=== PATIENT | male | born 1970 ===

== ENCOUNTER 2024-06-14 11:10 | Inpatient (IN) | payer BC ==
--- OUTSIDE RECORDS SUMMARY | 2024-06-14 17:00 | XMS REPORT | Continuity of Care Document ---
Author Name Unknown Address [address] [facility] [address] [id number] [facility] [address] [facility] [address] [place] [address] Care Team Providers Care Visiting Nurse Name Role Phone UNKNOWN, REFFERING Primary Care Physician EMILY Payton M.D., Cliff DIAZ Attending Cl inician Unavailable EMILY MERA M.D., Cliff DIAZ Admitting Cl inician Unavailable Immunizations Ordered Immunization Name Filled Immunization Name Date Status Comments Source Pfizer COVID-19 Vaccine Pfizer COVID-19 Vaccine 2021-01-15 00:00:00 Completed Pfizer COVID-19 Vaccine Pfizer COVID-19 Vaccine 2020-12-25 00:00:00 Completed Encounters Start Date/Time End Date/Time Encounter Type Admission Type [facility]ending [facility] Care Department Encounter ID Source 2021-01-15 00:00:00 2021-01-15 00:00:00 Outpatient [facility] [id number] [facility] 2020-12-25 00:00:00 2020-12-25 00:00:00 Outpatient [facility] [id number] [facility] 2017-03-31 06:56:00 2017-03-31 06:56:00 Outpatient EMILY BURGESS M.D. [facility] [id number] [facility] Notes Date/Time Note Provider Source 2017-05-23 21:55:55 [facility] enter Operative Report/Procedure PATIENT NAME: SADAF DOLL PHYSICIAN: Emily Mera MD Admitted: MR NUMBER: [id number] DISCHARGED: DATE OF PROCEDURE: 03/31/2017 PROCEDURE: Moderate conscious sedation, left subclavian angiography single lead ICD implanted device programming. DIAGNOSIS: Dilated cardiomyopathy with congestive heart failure. PROCEDURE IN DETAIL: After appropriate consent, the patient was taken to lab engineer, where she was draped in usual manner. The left upper chest was cleansed with local anesthetic, a total of 30 mL of lidocaine was given. Fluoroscopic evaluation was utilized throughout the procedure. Visipaque was administered to evaluate the takeoff of the surface of the subclavian vein and the vein was punctured under fluoroscopy. A guidewire was introduced. Then, with a 15 blade, a 2-inch incision was made across the chest and careful dissection with Metzenbaum to create a pocket, the generator was performed. The pocket was irrigated with antibiotic solution and a 7-[place] sheath was advanced over the guidewire. The guidewire and dilator were removed. The sheath was aspirated and flushed. An active fixation lead a [employer] model 7120Q/52 cm, serial number [id number] was placed on the RV apex. Active fixation was performed. Interrogation of the lead demonstrated an R-wave of 14.9 millivolts, impedance of 850 ohms and threshold 0.6 volts at 0.5 millisecond pulse with 10 volts, no diaphragmatic stimulation was noted. The lead was sutured with 0 silk within the pocket. Then, the pocket was irrigated with antibiotic solution again and the lead was connected to the device, which is [employer], model RT7979-58O, serial number was [id number], which was placed within the pocket after the lead was firmly connected to it and then the incision was closed with 2 layers of 2-0 Vicryl, layer of adrian as well as Dermabond. The patient tolerated the procedure well. No immediate complication. Estimated blood loss 2 mL. To recovery in stable condition. MD JOAN Romero/JOE TD: 03/31/2017 14:37 Electronically Authenticated by: Emily Mera MD On 04/27/2017 09:[address] [facility]
[2024-06-14 17:27] VITALS: BMI 34.2
[2024-06-14] MEDS ORDERED: ACETAMINOPHEN 500 MG TAB PO PRN (17:45)
[2024-06-14] MEDS ORDERED: OXYCODONE HCL 5 MG TAB PO PRN (17:54)
[2024-06-14] MEDS ORDERED: ENOXAPARIN 40 MG/0.4 ML SQ SCH (20:00)
[2024-06-14] MEDS: carvediloL 6.25 MG TAB PO SCH (20:13)
[2024-06-14] MEDS: GABAPENTIN 300 MG CAP PO SCH (20:13)
[2024-06-14] MEDS: HYDROCODONE/APAP 5/325 MG TAB PO PRN (20:13)
[2024-06-15 00:13] LABS: Specific Gravity 1.015 (1.005-1.030); Sqamous Epithelial None Seen /HPF (None Seen); Urine Bacteria None Seen /HPF (<20); Urine Bilirubin NEGATIVE (Negative); Urine Blood Negative (Negative); Urine Clarity Clear (Clear); Urine Color Light-Yellow (Yellow); Urine Culture Reflex Order NOT NEEDED; Urine Glucose NEGATIVE (Negative); Urine Ketones NEGATIVE (Negative); Urine Micro Reflex YN NO BILL MICROSCOPIC; Urine Nitrite NEGATIVE (Negative); Urine Protein NEGATIVE (Negative); Urine RBC <5 /HPF (None Seen); Urine Urobilinogen Normal (Normal); Urine WBC <5 /HPF (<5)
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
[2024-06-15 06:06] LABS: Absolute Basophils 0.1 K/uL (0-0.5); Absolute Eosinophils 0.5 K/uL (0-0.5); Absolute Lymphocytes (CBC) 2.2 K/uL (0.7-4.9); Absolute Monocytes 1.1 K/uL (0.1-1.3); Absolute Neutrophil 9.2 K/uL (1.8-8.0); Eosinophils % 3.8 % (0-4.4); Hematocrit 30.7 % (39.6-49.0); Lymphocytes % 16.8 % (15.3-44.8); MCH 33.3 pg (27.0-35.0); MCHC 32.5 g/dL (32.0-36.0); MCV 102.3 fL (80-100); Monocytes % 8.5 % (3.3-12.3); Neutrophils % 69.9 % (41.7-73.7); Nucleated Red Blood Cells % 0.2 % (0-0); Platelets 793 thou/uL (152-406); Red Cell Distribution Width 14.9 % (12.1-15.2)
[2024-06-15 06:37] LABS: Albumin 2.5 g/dL (3.4-5.0); Anion Gap 8.1 mEq/L (5.0-15.0); Magnesium 2.5 mg/dL (1.6-2.4); Potassium 4.1 mEq/L (3.5-5.1); Prealbumin 18.2 mg/dL (20-40)
[2024-06-15] MEDS: FUROSEMIDE 40 MG TABLET PO SCH (07:51)
[2024-06-15] MEDS: LIDOCAINE 4% PATCH TOP SCH (08:00)
[2024-06-15] MEDS: CELECOXIB 100 MG CAPSULE PO SCH (08:43)
[2024-06-15] MEDS: SACUBITRIL/VALSARTAN 24/26 MG TAB PO SCH (08:43)
[2024-06-15] MEDS: methocarbamoL 500 MG TAB PO PRN (12:14)
[2024-06-15] MEDS: RIVAROXABAN 20 MG TABLET PO SCH (17:20)
[2024-06-15] MEDS: ZOLPIDEM TARTRATE 10 MG TABLET PO SCH (22:02)
[2024-06-17 06:07] LABS: Absolute Eosinophils 0.7 K/uL (0-0.5); Absolute Lymphocytes (CBC) 1.6 K/uL (0.7-4.9); Absolute Monocytes 1.2 K/uL (0.1-1.3); Absolute Neutrophil 8.3 K/uL (1.8-8.0); Basophils % 0.3 % (0-1.3); Eosinophils % 5.6 % (0-4.4); Hematocrit 27.6 % (39.6-49.0); Hemoglobin 9.1 g/dL (13.6-17.9); Lymphocytes % 13.5 % (15.3-44.8); MCH 32.7 pg (27.0-35.0); MCHC 33.1 g/dL (32.0-36.0); MCV 98.9 fL (80-100); MPV 7.7 fL (7.6-11.3); Monocytes % 9.8 % (3.3-12.3); Neutrophils % 70.8 % (41.7-73.7); Nucleated Red Blood Cells % 0.2 % (0-0); Platelets 663 thou/uL (152-406); Red Cell Distribution Width 14.8 % (12.1-15.2)
[2024-06-17 06:24] LABS: Magnesium 2.2 mg/dL (1.6-2.4)
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
[2024-06-18] MEDS: LIDOCAINE 4% PATCH TOP SCH (07:29)
[2024-06-18] MEDS: FERROUS SULFATE 325 MG TAB PO SCH (10:00)
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
[2024-06-19] MEDS: DOCUSATE NA 100 MG CAP PO PRN (19:37)
[2024-06-20 05:50] LABS: Absolute Basophils 0.1 K/uL (0-0.5); Absolute Eosinophils 0.5 K/uL (0-0.5); Absolute Lymphocytes (CBC) 1.4 K/uL (0.7-4.9); Absolute Monocytes 1.2 K/uL (0.1-1.3); Absolute Neutrophil 6.6 K/uL (1.8-8.0); Basophils % 1.3 % (0-1.3); Eosinophils % 4.7 % (0-4.4); Hematocrit 26.3 % (39.6-49.0); Hemoglobin 8.8 g/dL (13.6-17.9); Lymphocytes % 14.1 % (15.3-44.8); MCHC 33.6 g/dL (32.0-36.0); MCV 98.2 fL (80-100); MPV 7.5 fL (7.6-11.3); Neutrophils % 67.9 % (41.7-73.7); Nucleated Red Blood Cells % 0.1 % (0-0); Platelets 575 thou/uL (152-406); RBC Red Blood Cell Count 2.68 M/uL (4.33-5.43)
[2024-06-20 06:04] LABS: Albumin 2.3 g/dL (3.4-5.0); Magnesium 2.2 mg/dL (1.6-2.4); Prealbumin 13.3 mg/dL (20-40)
[2024-06-20] MEDS: IBUPROFEN 600 MG TAB PO PRN (17:12)
[2024-06-20] MEDS ORDERED: IBUPROFEN 600 MG TAB PO SCH (20:00)
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
[2024-06-21] MEDS: FE SULF/FA/VIT B COMP & C TAB PO SCH (08:07)
--- NOTE | 2024-06-21 13:57 | P.RH.PN ---
Estimated Length of Stay: 14 Expected Discharge Date: 06/26/24 Discharge Disposition Plan: Home Family Support: Yes Skilled Nursing Goal: Mobility, Transfers, Self Care Vital Signs: Last Vital Signs Temp 97.7 F 06/21/24 07:15 Pulse 92 H 06/21/24 07:26 Resp 17 06/21/24 07:24 BP 137/66 06/21/24 07:26 Pulse Ox 97 06/21/24 07:24 Laboratory: Laboratory Last Values WBC 9.70 thou/uL (4.3-10.9) 06/20/24 05:07 RBC 2.68 M/uL (4.33-5.43) L 06/20/24 05:07 Hgb 8.8 g/dL (13.6-17.9) L 06/20/24 05:07 Hct 26.3 % (39.6-49.0) L 06/20/24 05:07 MCV 98.2 fL (80-100) 06/20/24 05:07 MCH 33.0 pg (27.0-35.0) 06/20/24 05:07 MCHC 33.6 g/dL (32.0-36.0) 06/20/24 05:07 RDW 15.0 % (12.1-15.2) 06/20/24 05:07 Plt Count 575 thou/uL (152-406) H 06/20/24 05:07 MPV 7.5 fL (7.6-11.3) L 06/20/24 05:07 Neutrophils % 67.9 % (41.7-73.7) 06/20/24 05:07 Lymphocytes % 14.1 % (15.3-44.8) L 06/20/24 05:07 Monocytes % 12.0 % (3.3-12.3) 06/20/24 05:07 Eosinophils % 4.7 % (0-4.4) H 06/20/24 05:07 Basophils % 1.3 % (0-1.3) 06/20/24 05:07 Absolute Neutrophils 6.6 K/uL (1.8-8.0) 06/20/24 05:07 Absolute Lymphocytes 1.4 K/uL (0.7-4.9) 06/20/24 05:07 Absolute Monocytes 1.2 K/uL (0.1-1.3) 06/20/24 05:07 Absolute Eosinophils 0.5 K/uL (0-0.5) 06/20/24 05:07 Absolute Basophils 0.1 K/uL (0-0.5) 06/20/24 05:07 Sodium 135 mEq/L (136-145) L 06/20/24 05:07 Potassium 4.0 mEq/L (3.5-5.1) 06/20/24 05:07 Chloride 103 mEq/L (98-107) 06/20/24 05:07 Carbon Dioxide 27 mEq/L (21-32) 06/20/24 05:07 Anion Gap 9.0 mEq/L (5.0-15.0) 06/20/24 05:07 BUN 9 mg/dL (7-18) 06/20/24 05:07 Creatinine 0.64 mg/dL (0.70-1.30) L 06/20/24 05:07 Est GFR (CKD-EPI) 111 ml/min (=/>90) 06/20/24 05:07 Glucose 104 mg/dL (74-106) 06/20/24 05:07 Calcium 8.5 mg/dL (8.5-10.1) 06/20/24 05:07 Magnesium 2.2 mg/dL (1.6-2.4) 06/20/24 05:07 Albumin 2.3 g/dL (3.4-5.0) L 06/20/24 05:07 Prealbumin 13.3 mg/dL (20-40) L 06/20/24 05:07 Urine Color Light-yellow (Yellow) 06/14/24 23:07 Urine Clarity Clear (Clear) 06/14/24 23:07 Urine pH 8.0 (5.0-7.0) H 06/14/24 23:07 Ur Specific [place] 1.015 (1.005-1.030) 06/14/24 23:07 Glucose (UA)(Auto) Negative (Negative) 06/14/24 23:07 Urine Ketones Negative (Negative) 06/14/24 23:07 Urine Blood Negative (Negative) 06/14/24 23:07 Urine Nitrite Negative (Negative) 06/14/24 23:07 Urine Bilirubin Negative (Negative) 06/14/24 23:07 Urine Urobilinogen Normal (Normal) 06/14/24 23:07 Ur Leukocyte Esterase Negative Dell/uL (Negative) 06/14/24 23:07 Urine RBC <5 /HPF (None Seen) 06/14/24 23:07 Urine WBC <5 /HPF (<5) 06/14/24 23:07 Ur Squamous Epith Cells None seen /HPF (None Seen) 06/14/24 23:07 Urine Bacteria None seen /HPF (<20) 06/14/24 23:07 Urine Culture Reflexed Not needed 06/14/24 23:07 Urine Total Protein Negative (Negative) 06/14/24 23:07 Weight: 225 lb Wound Present: Yes Closed Surgical Incision Present: Yes Negative Pressure Wound Therapy Present: No Physician Update: Labs reviewed and are stable. Met STG and 3/ LTG. Min assist transfers, in parallel bars. RW with left crutch 15', WC 375' independent. Met 4/ STG and no LTG. Keeping precautions. No evidence of depressing now. Swelling in both legs. Will do dopplers. Min assist upper body dressing, min assist foot wear. 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 Please see the Rehabilitation Signature page for all necessary signatures.
--- NOTE | 2024-06-21 15:42 | RAD REPORT ---
EXAMINATION: Ankle Left 2 View CLINICAL INDICATION: Male, 54 years old. pain,swelling COMPARISON: No prior exam. FINDINGS: No acute fracture. No malalignment/dislocation. No significant focal degenerative change. Other: Mild generalized soft tissue swelling. IMPRESSION: No acute osseous abnormality.
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
[2024-06-22 06:31] LABS: Uric Acid 4.3 mg/dL (3.5-7.2)
[2024-06-22] MEDS ORDERED: BISACODYL 10 MG RECTAL SUPP PR PRN (08:24)
[2024-06-22] MEDS: DOCUSATE NA/SENNA CONC 1 TAB PO SCH (08:28)
[2024-06-22] MEDS: POLYETHYL GLY 3350 17 GM/DOSE PO PRN (08:29)
[2024-06-23 05:15] LABS: Absolute Basophils 0.1 K/uL (0-0.5); Absolute Eosinophils 0.6 K/uL (0-0.5); Absolute Lymphocytes (CBC) 1.3 K/uL (0.7-4.9); Absolute Monocytes 0.8 K/uL (0.1-1.3); Absolute Neutrophil 5.6 K/uL (1.8-8.0); Basophils % 1.2 % (0-1.3); Eosinophils % 7.5 % (0-4.4); Hematocrit 27.9 % (39.6-49.0); Hemoglobin 9.1 g/dL (13.6-17.9); Lymphocytes % 15.4 % (15.3-44.8); MCH 31.6 pg (27.0-35.0); MCHC 32.7 g/dL (32.0-36.0); MCV 96.6 fL (80-100); MPV 7.7 fL (7.6-11.3); Monocytes % 9.3 % (3.3-12.3); Neutrophils % 66.6 % (41.7-73.7); Nucleated Red Blood Cells % 0.1 % (0-0); Platelets 536 thou/uL (152-406); RBC Red Blood Cell Count 2.89 M/uL (4.33-5.43); Red Cell Distribution Width 15.8 % (12.1-15.2)
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
[2024-06-25 05:34] LABS: Absolute Basophils 0.1 K/uL (0-0.5); Absolute Eosinophils 0.8 K/uL (0-0.5); Absolute Lymphocytes (CBC) 1.5 K/uL (0.7-4.9); Absolute Monocytes 0.6 K/uL (0.1-1.3); Absolute Neutrophil 4.5 K/uL (1.8-8.0); Basophils % 1.1 % (0-1.3); Eosinophils % 11.1 % (0-4.4); Hematocrit 26.9 % (39.6-49.0); Hemoglobin 9.1 g/dL (13.6-17.9); Lymphocytes % 19.5 % (15.3-44.8); MCH 31.9 pg (27.0-35.0); MCHC 33.8 g/dL (32.0-36.0); MCV 94.5 fL (80-100); MPV 7.4 fL (7.6-11.3); Monocytes % 8.2 % (3.3-12.3); Neutrophils % 60.1 % (41.7-73.7); Nucleated Red Blood Cells % 0.1 % (0-0); Platelets 460 thou/uL (152-406); RBC Red Blood Cell Count 2.85 M/uL (4.33-5.43); Red Cell Distribution Width 15.8 % (12.1-15.2)
[2024-06-25 05:50] LABS: Albumin 2.3 g/dL (3.4-5.0); Anion Gap 8.8 mEq/L (5.0-15.0); Magnesium 2.1 mg/dL (1.6-2.4); Potassium 3.8 mEq/L (3.5-5.1); Prealbumin 14.4 mg/dL (20-40)
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
[2024-06-26 07:09] VITALS: BP 137/72
[2024-06-26 07:32] VITALS: TEMP 98
[2024-06-27 12:15] LABS: Anti-Nuclear Antibody Screen Negative (Negative)
== END 2024-06-26 11:15 | disposition home or self-care (01) | DRG 950 ==
LOC: 5TH 16:50
PROVIDERS: ADMIT Psychiatry & Neurology Neurology with Special Qualifications in Child Neurology; ATTEND Psychiatry & Neurology Neurology with Special Qualifications in Child Neurology
DX: S06.6X9D Traumatic subarachnoid hemorrhage with loss of consciousness of unspecified duration, subsequent encounter (principal); S32.41 Fracture of anterior wall of acetabulum; S32.47 Fracture of medial wall of acetabulum; S32.591D Other specified fracture of right pubis, subsequent encounter for fracture with routine healing; S22.5XXD Flail chest, subsequent encounter for fracture with routine healing; S12.600D Unspecified displaced fracture of seventh cervical vertebra, subsequent encounter for fracture with routine healing; S22.059D Unspecified fracture of T5-T6 vertebra, subsequent encounter for fracture with routine healing; S42.011D Anterior displaced fracture of sternal end of right clavicle, subsequent encounter for fracture with routine healing; I48.91 Unspecified atrial fibrillation; I50.9 Heart failure, unspecified; M62.838 Other muscle spasm; K59.00 Constipation, unspecified
CPT/HCPCS: 36415; 80048; 81001; 82040; 83735; 84134; 84550; 85025; 86038; 86140; 87086; 87088; 92523; 93970; 97110; 97116; 97161; 97165; 97530; 97542; J2003